=== PATIENT | female | born 1995 | race Caucasian/White ===

== ENCOUNTER 2017-12-24 12:51 | Emergency (ER) | payer OTHER, SELFPAY ==
[2017-12-24 12:51] VITALS: BP 131/79; PULSE 98; RESP 16; TEMP 36.6; O2SAT 97
[2017-12-24] MEDS: 0.9% Normal Saline 1,000 ML 1000 ML IV (13:55)
[2017-12-24] MEDS: Ketorolac 30 MG/ML Syringe IV (13:55)
[2017-12-24] MEDS: Ondansetron 4 MG/2 ML Vial IV (13:56)
[2017-12-24 13:59] LABS: Bacteria 0 SEEN /hpf (None Seen); Mucous, Urine 0 SEEN /hpf (<or=2+); Red Blood Cells-Urine 0 SEEN /hpf (0-5); White Blood Cells 0 SEEN /hpf (0-5)
[2017-12-24 14:05] LABS: Absolute Lymphocyte Count 3.09 X10^3/ul (0.83-4.51); Absolute Neutrophil Count 9.6 X10^3/uL (2.0-7.7); Basophil# 0.01 X10^3/uL; Basophil% 0.1 % (0-1); Color, Urine Yellow (Yellow); Eosinophil# 0.06 X10^3/uL; Eosinophils% 0.4 % (0-5); Glucose, Dipstick Normal (Normal); Hematocrit 37.3 % (37-47); Hemoglobin 12.4 g/dl (12.0-15.0); Ketone-Dipstick Negative (Negative); Leukocyte Esterase-Dipstick Negative /ul (Negative); Lymphocyte # 3.09 X10^3/ul (4.0); Lymphocyte % 22.4 % (19-41); Mean Corp Hgb Conc 33.2 g/gl (32-36); Mean Corpuscular Hgb 27.6 pg (27.0-32.0); Mean Corpuscular Volume 82.9 fL (81-99); Monocyte# 1.04 X10^3/uL; Monocyte% 7.5 % (0-10); Neutrophil # 9.59 X10^3/uL (2.7-7.7); Neutrophil % 69.5 % (47-70); Nitrite-Dipstick Negative (Negative); Occult Blood-Urine 10 /ul (Negative); Platelet Count 243 K/mm3 (150-450); Protein-Dipstick Negative (Negative); RBC Distribution Width SD 39.4 fl (35.1-43.9); Urine Bilirubin Dipstick Negative (Negative); Urine Clarity Clear (Clear); Urine Urobilinogen Normal (Normal); Urine pH 6.5 (5.0 - 8.0); White Blood Count 13.8 K/mm3 (4.4-11.0)
[2017-12-24 14:06] LABS: POSITIVE COUNT NO; POSITIVE DIFFERENTIAL NO; POSITIVE MORPHOLOGY NO
[2017-12-24 14:12] LABS: Squamous Epithelial Cells - UA 0-5 SEEN /hpf (5-10)
[2017-12-24 14:14] LABS: Anion Gap 10 (5-15); BUN 7 mg/dL (7-18); BUN/Creat Ratio 9.5 RATIO (10-20); Calcium,Total 8.7 mg/dL (8.5-10.1); Chloride 101 mmol/L (98-107); Creatinine, Serum 0.74 mg/dL (0.55-1.02); EST Glomerular Filtration Rate 106 mL/min (>60); Est Glom Filt Rate - Afr Amer 128 mL/min (>60); Estimated Creatinine Clearance 131.14 ml/min; Glucose 82 mg/dL (74-106); Potassium 3.6 mmol/L (3.5-5.1); Sodium Level 137 mmol/L (136-145)
[2017-12-24 14:25] LABS: Pregnancy, Serum, hCG Quali. NEGATIVE Negative (0-9 Nonpreg)
--- NOTE | 2017-12-24 14:50 | ED.VISSUMM ---
- ER Visit Summary Date of Service: 12/24/17 Chief Complaint: Abdominal pain History of Present Illness: The patient is a F who is a [employer] student. She reports that she has abdominal pain that began yesterday. It is gradually gotten worse. It is a sharp pain that is 10 out of 10 with movement and 6 out of 10 after vomiting. States that she vomited one time, but it was a 5 minute episode with a small amount of blood on the last bit of vomitus she brought up. She reports that she has had 5-6 episodes of bright yellow diarrhea without blood. She has had a formed stool today. She has had dysuria and frequency. Her last menstrual period was 3 months ago. She denies any vaginal bleeding or discharge. She has had chills without fever. Patient denies sick contacts. Has not been camping out of the country. No possible bad food exposure. Does not drink well water. No recent antibiotic use. Physical Examination: Vitals: Stable. Afebrile. General: Well-nourished and well-developed. Head: Normocephalic atraumatic. Neck: Supple, no lymphadenopathy. No JVD. Nontender. Cardiovascular: Regular rate and rhythm. No murmurs. Respiratory: No respiratory distress. Clear to auscultation bilaterally. Abdominal: Soft, mild tenderness palpation over the left side of her abdomen in the suprapubic area, nondistended, normal bowel sounds. No guarding, rebound, or peritoneal signs. Back: Nontender. Extremities: Nontender, no edema. Skin: Normal color, no rash. Neurologic: Alert and oriented ?3. Cranial nerves II through XII are intact. Normal strength and sensation. Psych: Normal affect. Test Results: CBC is marked for her white count of 13.8. Chem-7 is normal. UA is normal. test is negative. Emergency Department Course and Treatment: Had an IV placed. She was treated with Toradol and Zofran IV. She has had no vomiting or diarrhea while here. Treatment Plan: She will be discharged with Zofran and Bentyl. Instructed to follow up with Dr. Moon in 1-2 days if not improving. Disposition: To home in improved and stable condition. Impression: 1. Vomiting/diarrhea. This note was generated with [employer] software. It may contain incorrect words, spelling, and punctuation that were not noted in review of the chart prior to signing ED Disposition - Plan for ED Patient: Disposition: Home or Assisted Living Chief Complaint: Abd Pain Instructions: ED Vomiting Diarrhea Nonspecific Ad Prescriptions: Ondansetron [Zofran Odt] 4 mg PO Q8H PRN PRN #10 tablet PRN Reason: Nausea Dicyclomine HCl [Bentyl] 20 mg PO TIDAC #20 capsule Referrals: Glen Moon MD [STAFF PHYSICIAN] - 1-2 Days if not improving
== END 2017-12-24 15:08 | disposition home or self-care (01) ==
LOC: ED 14:26
PROVIDERS: Emergency Provider Emergency Medicine
DX: R11.10 Vomiting, unspecified (principal); R19.7 Diarrhea, unspecified; R10.2 Pelvic and perineal pain
CPT/HCPCS: 80048; 81001; 84703; 85025; 96361; 96374; 96375; 99283; J7030; J2405

== ENCOUNTER → 2018-02-02 14:48 | Outpatient (CLI) | payer OTHER, SELFPAY | PROVIDERS: Visit Provider Physician Assistant Surgical | DX: J02.9 Acute pharyngitis, unspecified (principal) | CPT/HCPCS: 87081 ==

== ENCOUNTER 2018-06-11 16:38 | Emergency (ER) | payer OTHER, SELFPAY ==
[2018-06-11 16:39] VITALS: BP 133/87; PULSE 94; RESP 16; TEMP 36.9; O2SAT 98; BMI 29.7
[2018-06-11 17:06] VITALS: O2SAT 100
--- NOTE | 2018-06-11 17:48 | ED.VISSUMM ---
- ER Visit Summary Date of Service: 06/11/18 Chief Complaint: Closed head injury History of Present Illness: The patient is a 23 F presents after seeing [facility] for evaluation. Injury at work, states hit her head on the trailer. It was days. Nausea symptoms. No vomiting. Report confusion, however friends there states she was just slow on recognizing, however currently back to normal. Previous concussions in the past during high school. No anticoagulation medicines. No history of hemophilia. No past medical history except for her concussions. On oral contraceptives. No medications taken. Physical Examination: General: Alert and oriented ?3, no acute distress HEENT: Normocephalic, atraumatic. Moist mucosa membranes. No hemotympanum. Neck: supple, nontender. Cardiovascular: Regular rate and rhythm, no murmurs Respiratory: Normal breath sounds, symmetric, no distress Abdomen: Soft, nontender, nondistended Extremities: Nontender, no edema, pulses intact ?4 Neuro: no focal neurological deficits. Cranial nerves II through XII intact. Test Results: [] Emergency Department Course and Treatment: Patient vitals stable, no focal neurological deficits. Nexus CT head criteria are negative. I discussed concussion with patient. Brain rest precautions. Using Tylenol and Zofran as needed. First dose was given the ED. They are comfortable with the plan. They will follow up with [facility]. Signs and symptoms discussed to the return to ED. All questions were answered. Treatment Plan: [] Disposition: Discharge Impression: Concussion without loss of consciousness This note was generated with [employer] dictation software. It may contain incorrect words, spelling, and punctuation that were not noted in review of the chart prior to signing ED Disposition - Plan for ED Patient: Disposition: Home or Assisted Living Chief Complaint: Head Injury Diagnosis: Concussion without loss of consciousness, initial encounter Instructions: ED Concussion Prescriptions: Ondansetron [Zofran Odt] 4 mg PO Q8H PRN PRN #10 tablet PRN Reason: Nausea Referrals: Glen Moon MD [Primary Care Provider] - [facility]GROUP OF PHYSICIANS] - 2 Days
[2018-06-11] MEDS: Ondansetron ODT 4 MG Tablet 8 MG PO (17:50)
[2018-06-11 18:49] LABS: Red Blood Cells-Urine 0 SEEN /hpf (0-5)
[2018-06-11 18:52] LABS: Color, Urine Yellow (Yellow); Glucose, Dipstick Normal (Normal); Ketone-Dipstick Negative (Negative); Leukocyte Esterase-Dipstick Negative /ul (Negative); Nitrite-Dipstick Negative (Negative); Occult Blood-Urine 10 /ul (Negative); Protein-Dipstick 15 mg/dl (Negative); Specific Gravity, Urine 1.025 (1.002-1.030); Urine Bilirubin Dipstick Negative (Negative); Urine Clarity Clear (Clear); Urine Urobilinogen Normal (Normal)
[2018-06-11 19:19] LABS: Bacteria 1+ /hpf (None Seen); Mucous, Urine 2+ /hpf (<or=2+); Squamous Epithelial Cells - UA 0-5 SEEN /hpf (5-10); White Blood Cells 0-5 SEEN /hpf (0-5)
[2018-06-11 20:00] VITALS: BP 110/76; PULSE 71; RESP 16; O2SAT 98
== END 2018-06-11 20:01 | disposition home or self-care (01) ==
PROVIDERS: Emergency Provider Emergency Medicine; Family Provider Pediatrics; PCP Pediatrics
DX: S06.0X0A Concussion without loss of consciousness, initial encounter (principal); W22.8XXA Striking against or struck by other objects, initial encounter; Y93.9 Activity, unspecified; Y92.9 Unspecified place or not applicable; Y99.0 Civilian activity done for income or pay
CPT/HCPCS: 81001; 99283